=== PATIENT | female | born 1985 | race African-American/Black ===

== ENCOUNTER 2019-12-31 03:50 | Emergency (ER) | payer BC, MEDICAID, SELFPAY ==
[2019-12-31 03:53] VITALS: BP 116/80; PULSE 71; RESP 19; TEMP 36.1; O2SAT 100
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
[2019-12-31] MEDS: diazePAM 5 MG TABLET PO (04:29)
[2019-12-31] MEDS: ONDANSETRON INJ 4 MG/2 ML VIAL IV PUSH (04:29)
[2019-12-31] MEDS: KETOROLAC 30 MG/ML VIAL (*BKC) IV PUSH (04:29)
[2019-12-31 05:39] VITALS: BP 98/63; PULSE 85; RESP 17; O2SAT 100
== END 2019-12-31 06:09 | disposition home or self-care (01) ==
PROVIDERS: Emergency Provider General Practice; PCP Nurse Practitioner Family
DX: G44.309 Post-traumatic headache, unspecified, not intractable (principal); F07.81 Postconcussional syndrome
CPT/HCPCS: 96374; 96375; 99284; A9270; J1885; J2405

== ENCOUNTER 2020-02-21 10:01 | Outpatient (CLI) | payer BC, MEDICAID, SELFPAY ==
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
== END 2020-02-21 10:02 | disposition home or self-care (01) ==
PROVIDERS: PCP Nurse Practitioner Family; Visit Provider Psychiatry & Neurology Neurology
DX: R51 Headache (principal); J32.9 Chronic sinusitis, unspecified
CPT/HCPCS: 70551